=== PATIENT | female | born 1990 | race Caucasian/White ===

== ENCOUNTER 2018-10-09 14:44 | Emergency (ER) | payer OTHER ==
[2018-10-09] MEDS: HYDROCODONE/APAP (5/325) TAB PO (15:53)
[2018-10-09] MEDS: CYCLOBENZAPRINE 10 MG TAB PO (15:53)
[2018-10-09] MEDS: KETOROLAC 60 MG INJ IM (15:54)
[2018-10-09] MEDS: DEXAMETHASONE 10 MG/ML 1 ML INJ IV (15:54)
[2018-10-09 16:06] LABS: ADD UMIC NO; UR ASCORBIC ACID NEGATIVE (NEGATIVE); UR BILIRUBIN (Dip) NEGATIVE (NEGATIVE); UR BLOOD (Dip) NEGATIVE (NEGATIVE); UR CLARITY CLEAR (CLEAR); UR COLOR YELLOW (YELLOW); UR GLUCOSE (Dip) NEGATIVE (NEGATIVE); UR KETONES (Dip) NEGATIVE (NEGATIVE); UR LEUKOCYTE ESTERASE (Dip) NEGATIVE Leu/ul (NEGATIVE); UR NITRITE (Dip) NEGATIVE (NEGATIVE); UR SPECIFIC GRAVITY (Dip) 1.028 (1.003-1.030); UR TOTAL PROTEIN (Dip) NEGATIVE (NEGATIVE); UR UROBILINOGEN (Dip) NEGATIVE (NEGATIVE)
== END 2018-10-09 18:53 | disposition home or self-care (01) ==
LOC: FTE 14:44
DX: S62.174A Nondisplaced fracture of trapezium [larger multangular], right wrist, initial encounter for closed fracture (principal); S13.9XXA Sprain of joints and ligaments of unspecified parts of neck, initial encounter; S20.212A Contusion of left front wall of thorax, initial encounter; M62.838 Other muscle spasm; V43.52XA Car driver injured in collision with other type car in traffic accident, initial encounter
CPT/HCPCS: 29125; 72125; 73110-RT; 81003; 81025; 96372; 96374; 99285-25